=== PATIENT | female | born 1940 | race Caucasian/White ===

== ENCOUNTER 2021-01-07 04:32 | Inpatient (IN) | payer MEDICARE ==
[~2021-01-07] VITALS: Ht 165.1 cm; Wt 51.6 kg
[2021-01-07 05:08] LABS: BASOPHILS 1.3 % (0-2); EOSINOPHILS 1.2 % (0-7); HEMATOCRIT 26.8 % (36.0-48.0); HEMOGLOBIN 9.2 g/dL (12-16); LYMPHOCYTES 11.1 % (15-50); MCH 34.4 pg (26.0-34.0); MCHC 34.4 g/dL (31.0-37.0); MCV 100.2 fL (80.0-100.0); MEAN PLATELET VOLUME 8.3 fL (7.4-10.4); MONOCYTES 12.3 % (2-11); NEUTROPHILS 74.1 % (40-80); PLATELET COUNT 175 10x3/uL (130-400); RBC 2.68 10x6/uL (4.00-5.40); RDW 17.6 % (11.5-14.5); WBC 6.8 10x3/uL (4.8-10.8)
[2021-01-07 05:25] LABS: CALC OSMOLALITY 288 mosm/kg (275-300); CARBON DIOXIDE 22.5 mmol/L (21.0-32.0); CHLORIDE - SERUM 106 mmol/L (98-107); CREATININE - SERUM 2.1 mg/dL (0.6-1.3); GLUCOSE 106 mg/dL (74-106); POTASSIUM - SERUM 4.7 mmol/L (3.5-5.1); SODIUM 139 mmol/L (136-145); UREA NITROGEN 42 mg/dL (7-18); eGFR NON AFRICAN AMERICAN 24 mL/min (90-120)
[2021-01-07 05:31] LABS: ALKALINE PHOSPHATASE 157 U/L (30-120); ALT (SGPT) 23 U/L (10-68); AMYLASE - SERUM 126 U/L (25-115); BILIRUBIN - TOTAL 0.61 mg/dL (0.2-1.3); LIPASE 365 U/L (73-393); PROTEIN - SERUM 6.9 g/dL (6.4-8.2)
[2021-01-07 05:42] LABS: TROPONIN-I < 0.017 ng/mL (0.000-0.060)
--- NOTE | 2021-01-07 07:09 | NUR ---
SPOKE WITH DR KHAN REGARDING PATIENTS BP. BP HAS BEEN ELEVATED SINCE PT ARRIVED TO ED. NO NEW ORDERS PER DR KHAN.
[2021-01-07 07:29] LABS: BACTERIA FEW HPF (NONE SEEN); BILIRUBIN NEGATIVE (NEGATIVE); KETONE NEGATIVE (NEGATIVE); NITRITE NEGATIVE (NEGATIVE); SQUAMOUS EPITHELIAL OCC HPF (0-4); UROBILINOGEN NORMAL mg/dL (< 2); WHITE CELLS - URINE OCC HPF (0-4)
[2021-01-07 08:42] VITALS: BP 174/84
--- NOTE | 2021-01-07 11:10 | NUR ---
PATIENT AAOX4 LYING SEMI FOWLERS, RESP EVEN AND NON LABORED, NO S/S OF DISTRESS, TELEPHONE ORDER FOR PATIENTS MEDICATIONS TOOK FROM DR LOPEZ, MEDICATIONS ADMINISTERED AND DISCUSSED WITH PATIENT, PATIENT STATES SHE LEFT [facility] Wednesday01/03/21 AND WAS ADMITED FOR HEALTHCARE STRAIN EXHAUTION/DEHYDRATION FROM TAKING CARE OF HER , PATIENT STATES SHE HAS HAD N/V/D SINCE WEDNESDAY WELL, PATIENT STATES SHE CAN GET UP WITH MINIMAL ASSIST TO THE BATHROOM AND CAN USE BEDPAN WELL, NO FURTHER NEEDS AT THIS TIME, REAL HOFFMAN
[2021-01-07 11:30] VITALS: BP 174/84; BMI 24.1
[2021-01-07 12:00] VITALS: BP 153/72
--- NOTE | 2021-01-07 14:15 | NUR ---
Pt having labored breathing/states "I can't breathe", placed on oxygen at 2lpm via NC, VS 97.1-20-99%-97-145/84, reported to nurse taking care of pt for further monitoring.
--- NOTE | 2021-01-07 15:50 | NUR ---
PATIENT IS HAVING TROUBLE BREATHING, DR. LOPEZ NOTIFIED FOR NEW ORDERS AND CHEST XRAY ORDERED, DR LOPEZ STATED TO STOP FLUIDS IF SHE IS EATINGA ND DRINKING, FLUIDS STOPPED AT THIS TIME, PATIENT STATES SHE FEELS AWFUL AND CANT BREATH, CURRENT VITALS TEMP-97.8 BP138/87, HR-90, RESP-20, O2-98 2L
[2021-01-07 18:40] VITALS: BP 140/61
--- NOTE | 2021-01-07 18:55 | NUR ---
pt lying in bed, awake alert no distress noted. requesting an iphone charging to [place]. no outcomes analyst available, pt notified. pt denies any other needs or issues. will continue to monitor
[2021-01-08] VITALS: BP 121/70
[2021-01-08 04:00] VITALS: BP 130/67
[2021-01-08 06:22] LABS: EOSINOPHILS 5.3 % (0-7); HEMATOCRIT 25.4 % (36.0-48.0); HEMOGLOBIN 8.3 g/dL (12-16); LYMPHOCYTES 17.3 % (15-50); MCH 33.2 pg (26.0-34.0); MCHC 32.8 g/dL (31.0-37.0); MCV 101.3 fL (80.0-100.0); MEAN PLATELET VOLUME 8.5 fL (7.4-10.4); MONOCYTES 13.4 % (2-11); PLATELET COUNT 168 10x3/uL (130-400); RBC 2.51 10x6/uL (4.00-5.40); RDW 17.7 % (11.5-14.5)
[2021-01-08 06:55] LABS: CALCIUM 8.8 mg/dL (8.5-10.1); CARBON DIOXIDE 24.4 mmol/L (21.0-32.0); MAGNESIUM - SERUM 1.6 mg/dL (1.8-2.4); POTASSIUM - SERUM 4.4 mmol/L (3.5-5.1)
--- NOTE | 2021-01-08 07:00 | NUR ---
PT LYING IN BED. RESP EVEN AND UNLABORED. O2 2 [address]PM [address] NC IN PLACE. EEK. PT STATES THE BATTERIES IN HER HEARING AIDS HAVE WENT OUT, BUT FAMILY IS GOING TO BRING HER MORE. AAO X4. DENIES NEEDS AT THIS TIME. CLIR. BED IN LOWEST POSITION SIDE RAILS X2
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
[2021-01-08 07:49] VITALS: BP 152/78
[2021-01-08 12:02] VITALS: BP 147/72
[2021-01-08] MEDS ORDERED: GABAPENTIN300 MG PO (12:26)
[2021-01-08] MEDS ORDERED: TOPROL XL50 MG PO (12:27)
[2021-01-08] MEDS ORDERED: EFFEXOR XR150 MG PO (12:28)
[2021-01-08] MEDS ORDERED: ASCORBIC ACID500 MG PO (12:29)
[2021-01-08] MEDS ORDERED: OSTEO BI-FLEX1 EAC1 PO (12:30)
[2021-01-08] MEDS ORDERED: VITAMIN E100 UNIT PO (12:31)
[2021-01-08] MEDS ORDERED: MERIBIN5 MG PO (12:32)
[2021-01-08] MEDS ORDERED: ACETAMINOPHEN325 MG PO (12:32)
[2021-01-08 16:03] VITALS: BP 138/68
--- NOTE | 2021-01-08 17:00 | NUR ---
PT STATES SHE DOES NOT WANT TO GO TO [facility] AND WILL ABSOLUTELY NOT GO. ORCHID WORKER NOTIFIED
--- NOTE | 2021-01-08 18:02 | NUR ---
I have reviewed this patient and I concur with the Shift Assessment completed by the Licensed Practical Nurse today this shift.
[2021-01-08 19:34] VITALS: BP 143/77
--- NOTE | 2021-01-08 21:31 | NUR ---
REPORT RECEIVED. PT A&O, UP IN BED. PT EXHIBITING ANXIETY ABOUT D/C'ING. PT WAS TOLD THAT SHE RECEIVED PLACEMENT AT [facility]. PT WAS VERY UPSET BY THIS AND STATED SHE REFUSES TO GO BACK TO [facility] AND STATES THAT SHE WANTS TO LEAVE AT 0900 ON 01/09/21. EXPLAINED TO PT THAT MD DECIDES ON D/C DATE AND TIME. PT STATED THAT SHE WOULD LIKE FOR THIS NURSE TO CONTACT THE MD IN THE MORNING AND TELL HIM TO D/C HER AT 0900. WILL F/U WITH CASE MANAGEMENT IN THE AM. NO S/S OF DISTRESS OBSERVED. RR EVEN AND UNLABORED ON 2L. BED LOCKED AND LOWERED, CL IN REACH. ASSESSMENT COMPLETE. WILL CONT POC.
[2021-01-09 00:28] VITALS: BP 139/69
[2021-01-09 04:10] VITALS: BP 137/67
[2021-01-09 06:17] LABS: BASOPHILS 1.7 % (0-2); EOSINOPHILS 6.6 % (0-7); HEMATOCRIT 23.5 % (36.0-48.0); HEMOGLOBIN 7.8 g/dL (12-16); LYMPHOCYTES 24.4 % (15-50); MCH 33.2 pg (26.0-34.0); MCHC 33.2 g/dL (31.0-37.0); MEAN PLATELET VOLUME 8.4 fL (7.4-10.4); MONOCYTES 14.8 % (2-11); NEUTROPHILS 52.5 % (40-80); PLATELET COUNT 159 10x3/uL (130-400); RBC 2.35 10x6/uL (4.00-5.40); RDW 17.1 % (11.5-14.5)
[2021-01-09 06:18] LABS: WBC 3.5 10x3/uL (4.8-10.8)
[2021-01-09 06:41] LABS: ANION GAP 11.7 mmol/L (8-16); CALCIUM 8.1 mg/dL (8.5-10.1); CARBON DIOXIDE 25.7 mmol/L (21.0-32.0); POTASSIUM - SERUM 4.4 mmol/L (3.5-5.1)
[2021-01-09 08:17] VITALS: BP 146/76
[2021-01-09 11:16] VITALS: BP 150/80
--- NOTE | 2021-01-09 11:37 | NUR ---
REHAB PRESCREEN RECEIVED. PATIENTS OCCUPATIONAL THERAPY EVAL HAS NOT BEEN COMPLETED AT THIS TIME. I WILL SEND A MESSAGE ASKING FOR THIS TO BE MOVED UP ON THE LIST FOR TODAY. WE WILL REVISIT THE CHART AT THAT TIME, AND IF SHE LOOKS TO MEET CRITERIA, THEN SUBMIT TO [facility] FOR AUTH. THANK YOU FOR THE REFERRAL. MIGUELITO LE RN CLINICAL LIAISON, INPATIENT REHAB.
--- NOTE | 2021-01-09 16:17 | NUR ---
THANK YOU FOR THIS REFERRAL. REFERENCE NUMBER OBTAINED FROM [facility]. WAITING FOR CALL FROM REVIEWER AT [facility] TO DISCUSS CLINICALS. -ANIKA HUFFMAN LPN, CLINICAL LIASION
[2021-01-09 19:56] VITALS: BP 156/82
--- NOTE | 2021-01-09 20:00 | NUR ---
REPORT RECEIVED. PT A&O, UP IN BED WATCHING TV. NO S/S OF DISTRESS OBSERVED. RR EVEN & UNLABORED ON 2L. BED LOCKED AND LOWERED, CL IN REACH. ASSESSMENT COMPLETE. WILL CONT POC.
[2021-01-09 23:16] VITALS: BP 137/79
[2021-01-10 04:14] VITALS: BP 159/82
[2021-01-10 05:53] LABS: BASOPHILS 1.3 % (0-2); EOSINOPHILS 6.7 % (0-7); LYMPHOCYTES 22.7 % (15-50); MCH 31.7 pg (26.0-34.0); MEAN PLATELET VOLUME 8.5 fL (7.4-10.4); MONOCYTES 16.6 % (2-11); NEUTROPHILS 52.7 % (40-80); PLATELET COUNT 164 10x3/uL (130-400); RDW 19.8 % (11.5-14.5); WBC 4.1 10x3/uL (4.8-10.8)
[2021-01-10 06:02] LABS: HEMOGLOBIN 10.5 g/dL (12-16); RBC 3.32 10x6/uL (4.00-5.40)
[2021-01-10 06:03] LABS: MCV 96.3 fL (80.0-100.0)
[2021-01-10 06:10] LABS: ANION GAP 10.7 mmol/L (8-16); CALCIUM 8.5 mg/dL (8.5-10.1); CARBON DIOXIDE 25.2 mmol/L (21.0-32.0); CREATININE - SERUM 1.9 mg/dL (0.6-1.3); POTASSIUM - SERUM 3.9 mmol/L (3.5-5.1)
[2021-01-10 07:54] VITALS: BP 146/82
[2021-01-10 10:58] VITALS: BP 158/78
--- NOTE | 2021-01-10 11:59 | NUR ---
would like to leave in enteric isolation until diarrhea resolves. ? Viral potentially transmissible.
[2021-01-10 12:56] VITALS: Ht 165.1 cm; Wt 51.6 kg
[2021-01-10 15:09] VITALS: BP 167/85
--- NOTE | 2021-01-10 15:27 | NUR ---
OT NOTE: PT STATED TREATMENT TO LE FOR RASH, NOTIFIED NURSING. PT COMPLETED FACE HYGIENE WITH SETUP. PT COMPLETED HAIR GROOMING WITH SETUP. PT COMPLETED SUPINE TO SIT WITH SBA. PT COMPLETED SIT TO STANC WITH SBA-CGA. PT COMPLETED ADL MOB WITH SBA-CGA. CL WITHIN REACH AND BED ALARM ON. JOSE LUIS TO COTA
--- NOTE | 2021-01-10 16:45 | NUR ---
ATTEMPTED TO CONTACT THE [facility] X 3 IN REGARDS TO AUTHORIZATION STATUS. DISCONNECTED EACH TIME. WILL CONTINUE TO FOLLOW UP WITH THE [facility] REGARDING AUTHORIZATION.-ANIKA HUFFMAN LPN, CLINICAL LIAISON
[2021-01-10 19:53] VITALS: BP 167/95
--- NOTE | 2021-01-10 22:55 | NUR ---
REPORT RECEIVED. PT A&O, UP IN BED. NO S/S OF DISTRESS OBSERVED. RR EVEN & UNLABORED ON 2L. R AC IV INFUSING NS @ 100CC/HR. DRESSING C/D/I. NO S/S OF INFILTRATION PRESENT. SR 74 ON TELE. PT EXHIBITING ANXIETY. PT HAS BEEN TOLD BY STAFF ON 2 DIFFERENT OCCASIONS THAT SHE IS GOING TO BE D/C'ED. PT IS IN DISTRESS ABOUT D/C'ING BC HER CAREGIVER AND TRANSPORTATION, HOWARD, LIVES OUT OF TOWN AND ARRANGEMENTS MUST BE MADE FOR HIM TO PICK HER UP. PT NEEDS CM TO COORDINATE WITH MD ABOUT WHEN PT WILL BE D/C'ED AND HELP PT ARRANGE TRANSPORTATION HOME. PTS ANXIETY OVER THIS ISSUE HAS BROUGHT HER TO TEARS MOST OF THE DAY. PT NEEDS MD/CM TO COMMUNICATE D/C PLAN WITH HER TO EASE ANXIETY. BED LOCKED AND LWOERED. CL IN REACH. ASSESSMENT COMPLETE. WILL CONT POC.
[2021-01-10 23:41] VITALS: BP 169/93
--- NOTE | 2021-01-11 03:58 | NUR ---
PT RECEIVED QUESTRAN AT 2030 01/10/21. PT HAD DIARRHEA THIS AM AT 0200. ADMINISTERED LOMOTIL.
--- NOTE | 2021-01-11 07:00 | NUR ---
RECEIVED REPORT. ASSUMED CARE OF PATIENT. RESTING WITH EYES CLOSED. NOC SHIFT REPORTS PATIENT TO HAVE INCREASED LEVEL OF ANXIETY THROUGHOUT PRODUCT DEVELOPMENT COORDINATOR, PATIENT WAS NOT ADMINISTERED EFFEXOR MORNING OF 01/10. CALL LIGHT WITHIN REACH. WHITE BOARD UPDATED, BEDSIDE SHIFT REPORT COMPLETE. NO DISTRESS.
[2021-01-11 08:07] VITALS: BP 166/90
--- NOTE | 2021-01-11 12:39 | NUR ---
OOB TO CHAIR AT BEDSIDE. DENIES NEEDS. NO DISTRESS.
[2021-01-11 15:56] VITALS: BP 109/76
--- NOTE | 2021-01-11 16:14 | NUR ---
Resting peacefully with eyes closed. no distress. easily aroused. call light within reach.
[2021-01-11 20:09] VITALS: BP 157/81
--- NOTE | 2021-01-11 22:06 | NUR ---
INITIAL ROUNDS COMPLETED AT 1915 HRS. PT DENIED ANY DISCOMFORT. ASSESSMENT COMPLETED AT 1950 HRS. VSS. SR PER CM HR 82. O2 4LNC. ALERT AND ORIENTED TO PERSON. PLACE AND TIME. PRITCHETT. PALPABLE PERIPHERAL PULSES. IV TO R WRIST WITHNS AT 30CC/HR. IV PATENT. FADING RASH TO BILAT LOWER LEGS. PM MEDS GIVEN. PT HAD C/O GAS CRAMPS. PT ASSISTED TO SIDE OF BED AND MODERATE AMOUNT OF FLATUS WAS PASSED. PT ALSO BURPED X2. PT STATED SHE FELT BETTER. TYLENOL 650MG PO GIVEN FOR C/O CEDENO. PT CURRENTLY RESTING WITH EYES CLOSED. RESP EVEN AND REGULAR. SR UP X1, CALL LIGHT WITHIN REACH.
[2021-01-12 00:01] VITALS: BP 154/82
--- NOTE | 2021-01-12 00:20 | NUR ---
PT UP TO BR. DENIES ANY DISTRESS.
--- NOTE | 2021-01-12 02:13 | NUR ---
PT RESTING WITH EYES CLOSED. RESP EVEN AND REGULAR. SR UP X1,CALL LIGHT WITHIN REACH.
--- NOTE | 2021-01-12 04:33 | NUR ---
ASSSITED PT TO BR. VOIDED MODERATE AMOUNT OF URINE. ASSISTED BACK TO BED. GAIT SLIGHTLY UNSTEADY. SR UP X1, CALL LIGHT WITHIN REACH.
[2021-01-12 04:49] VITALS: BP 145/67
--- NOTE | 2021-01-12 06:05 | NUR ---
VSS THROUGHOUT NIGHT. PT STTAED TYLENOL ALLEVIATED HER CEDENO. NEEDS MET; WILL CONTINUE TO MONITOR.
--- NOTE | 2021-01-12 07:00 | NUR ---
RECEIVED REPORT. ASSUMED CARE OF PATIENT. PATIENT RESTING IN BED WITH EYES OPEN, ATTENTION TOWARD TELEVISION. CALL LIGHT WITHIN REACH. WHITE BOARD UPDATED, BEDSIDE SHIFT REPORT COMPLETE. NO DISTRESS.
--- NOTE | 2021-01-12 07:10 | NUR ---
ASSISTED PATIENT OOB TO RESTROOM AND BACK TO BED.
[2021-01-12 08:00] VITALS: BP 173/89
--- NOTE | 2021-01-12 09:36 | NUR ---
PATIENT DOES NOT WANT ANY BREATHING TREATMENTS AND WILL NOT DO THEM. BELIEVE THAT THEY WILL PARALYZE HER VOCAL CORDS. PATIENT EDUCATED BUT REFUSES.
[2021-01-12 12:00] VITALS: BP 145/78
[2021-01-12 16:00] VITALS: BP 155/83
--- NOTE | 2021-01-12 16:13 | NUR ---
assisted patient oob to bedside commode and back to bed. no distress. call light within reach.
--- NOTE | 2021-01-12 17:25 | NUR ---
CALLED ANSWERING SERVICE TO REQUEST NEURONTIN BE CHANGED FROM 600 DAILY TO 300MG BID PER THE SCHEDULE PATEINT WAS TAKING THEM BEFORE, PATIENT COMPLAINING HER FEET ARE BURNING AND HURTING, OFFERED HER TYLENOL AND SHE STATES IT WILL NOT HELP AND SHE NEEDS HER NEURONTIN INCREASED. AWAITING CALLBACK FROM .
--- NOTE | 2021-01-12 17:44 | NUR ---
SPOKE WITH AND RECIEVED ORDERS TO CHANGE NEURONTIN TO BID, START BID TONIGHT EVEN THOUGH PATEINT HAD 600 THIS AM AND ORDER RECEIVED FOR TYLENOL #3, ONE TAB EVERY 6 HOURS PRN X 3 DOSES ONLY. ORDERS INPUTTED AND WAITED ON PHARMACY TO VERIFY MEDICATION ORDERS.
--- NOTE | 2021-01-12 18:23 | NUR ---
medicated for pain at this time. no distress.
[2021-01-12 21:00] VITALS: BP 153/78
--- NOTE | 2021-01-12 22:13 | NUR ---
INITIAL ROUNDS COMPLETED AT 1915 HRS. BIBLE FOUND FOR PT PER REQUEST. ASSESSMENT COMPELTED AT 1999 HRS. VSS. SR PER CMHR 80. ALERT AND ORIENTED TO PERSON, PLACE AND TIME. PRITCHETT. PALPABLE PERIPHERAL PULSES. O2 3LNC. LUNGS DIMINISHED IN BASES BILAT. BILAT LEGS FROM KNEES DOWN WITH FADING RED RASH. 1+ PEDAL EDEMA. IV TO RFA SL. PM MEDS GIVEN. PT CURRENTLY RESTING WTH EYES CLOSED. RESP EVEN AND REGULAR. SR UP X2, CALL LIGHT WITHIN REACH.
[2021-01-13] VITALS (7 sets, daily range): BP systolic 151–161; BP diastolic 76–80
--- NOTE | 2021-01-13 00:30 | NUR ---
PT RESTING WITH EYES CLOSED. RESP EVEN AND REGULAR. SR UP X2, CALL LIGHT WITHIN REACH.
--- NOTE | 2021-01-13 03:17 | NUR ---
PT RESTING WITH EYES CLOSED. RESP EVEN AND REGULAR. SR UP X2, CALL LIGHT WITHIN REACH.
--- NOTE | 2021-01-13 05:55 | NUR ---
VSS THROUGHOUT SHIFT. PT RESTED WELL DURING SHIFT. NEEDS MET; WILL CONTINUE TO MONITOR.
[2021-01-13 06:47] LABS: BASOPHILS 1.1 % (0-2); EOSINOPHILS 5.3 % (0-7); HEMATOCRIT 28.4 % (36.0-48.0); HEMOGLOBIN 9.6 g/dL (12-16); LYMPHOCYTES 16.8 % (15-50); MCH 32.4 pg (26.0-34.0); MCHC 33.9 g/dL (31.0-37.0); MCV 95.6 fL (80.0-100.0); MEAN PLATELET VOLUME 8.6 fL (7.4-10.4); MONOCYTES 16.9 % (2-11); NEUTROPHILS 59.9 % (40-80); PLATELET COUNT 183 10x3/uL (130-400); RBC 2.97 10x6/uL (4.00-5.40); RDW 18.2 % (11.5-14.5); WBC 5.5 10x3/uL (4.8-10.8)
--- NOTE | 2021-01-13 07:00 | NUR ---
RECEIVED REPORT. ASSUMED CARE OF PATIENT. CALL LIGHT WITHIN REACH. PATIENT RESTING IN BED, HERE FOR AM ROUNDS. WHITE BOARD UPDATED, BEDSIDE SHIFT REPORT COMPLETE. NO DISTRESS.
[2021-01-13 07:06] LABS: ANION GAP 10.5 mmol/L (8-16); CALCIUM 8.7 mg/dL (8.5-10.1); CARBON DIOXIDE 24.6 mmol/L (21.0-32.0); CREATININE - SERUM 1.8 mg/dL (0.6-1.3); POTASSIUM - SERUM 4.1 mmol/L (3.5-5.1)
--- NOTE | 2021-01-13 09:15 | NUR ---
PT OOB WITH PT, AMBULATED 250 FT = ONE LAP AROUND THE ENTIRE UNIT.
--- NOTE | 2021-01-13 12:17 | NUR ---
SHOWER COMPLETE, LINENS CHANGED, AND PATIENT BACK TO BED. TOLERATED SHOWER, LINEN CHANGE WELL.
--- NOTE | 2021-01-13 12:47 | NUR ---
Nutrition Follow-up: PO intake improving. Last recorded BM on 01/12. Last received Zofran on 01/11. Diet: Renal PO intake: 54% avg x 6 meals (01/11-01/12) WT: 113.6# (01/11); 145# (01/07 - stated) Labs noted: K+ 4.1, BUN 23, Cre 1.8, GFR 29 Meds noted: Florajen, Questran, Lomotil, Lasix, vit E, fish oil, Oscal D, Fibercon, electrolyte protocol -Encourage PO intake and honor food preferences within diet restrictions. -Offer nutrition supplements. -Monitor wt. -RD will follow up within 3 days.
--- NOTE | 2021-01-13 13:23 | NUR ---
Spoke with nurse advises diarrhea has subsided. Enteric Isolation has been discontinued.
--- NOTE | 2021-01-13 13:25 | NUR ---
SPOKE WITH SRINIVAS IN INFECTION CONTROL, PATIENT MAY BE TAKEN OUT OF ENTERIC ISOLATION.
--- NOTE | 2021-01-13 16:13 | NUR ---
OT NOTE: (AM) PT COMPLETED SIT TO STAND WITH CGA. PT COMPLETED ADL MOBILITY WITH CGA USING RW. PT COMPLETED UB HYGIENE TASKS WITH SETUP WHILE SEATED. PT COMPLETED HAIR GROOMING WITH SETUP. (PM) PT COMPLETED STANDING BALANCE WITH FUNCTIONAL TASKS WITH CGA-SBA. PT DID WELL. [phone];1-120 JOSE LUIS TO COTA
--- NOTE | 2021-01-13 20:00 | NUR ---
REPORT RECEIVED. PT A&O, UP IN BED WATCHING TV. NO S/S OF DISTRESS OBSERVED. RR EVEN & UNLABORED ON 2L NC. IV TO R FA SL, PATENT, SWAB CAPS IN USE. SR 68 ON TELE. BED LOCKED AND LOWERED, CL IN REACH. ASSESSMENT COMPLETE. WILL CONT POC.
[2021-01-14 04:00] VITALS: BP 159/69
[2021-01-14 05:14] LABS: BASOPHILS 1.2 % (0-2); EOSINOPHILS 5.7 % (0-7); HEMOGLOBIN 9.5 g/dL (12-16); LYMPHOCYTES 19.9 % (15-50); MCH 32.5 pg (26.0-34.0); MCV 95.5 fL (80.0-100.0); MEAN PLATELET VOLUME 8.4 fL (7.4-10.4); MONOCYTES 16.2 % (2-11); PLATELET COUNT 185 10x3/uL (130-400); RBC 2.93 10x6/uL (4.00-5.40); WBC 4.9 10x3/uL (4.8-10.8)
[2021-01-14 05:24] LABS: ANION GAP 10.9 mmol/L (8-16); CALCIUM 8.8 mg/dL (8.5-10.1); CARBON DIOXIDE 23.1 mmol/L (21.0-32.0); CREATININE - SERUM 1.9 mg/dL (0.6-1.3)
[2021-01-14 07:55] VITALS: BP 157/77
--- NOTE | 2021-01-14 11:52 | NUR ---
D/C RIGHT FOREARM IV, TIP INTACT. PAINFUL AND LEAKING. 24 G PLACED IN LEFT AC.
[2021-01-14 12:22] VITALS: BP 151/79
[2021-01-14 15:51] VITALS: BP 108/78
--- NOTE | 2021-01-14 16:45 | NUR ---
OT NOTE: PT COMPLETED SUPINE TO SIT WITH SBA. PT COMPLETED ADL MOBILITY FROM BED TO BATHROOM WITH RW REQUIRED SBA-CGA. PT COMPLETED TOILETING WITH SBA. PT COMPLETED HYGIENE WITH SBA. PT COMPLETED ADL MOB WITH RW TO SINK WITH SBA-CGA. PT COMPLETED UB HYGIENE TASKS WITH SBA AT SINK LEVEL. PT EXHIBITED MOST DIFFICULTY WITH LB DRESSING SECONDARY TO DECREASED TRUNK FLEXION. PT REQUIRED MAX-TOTAL A FOR KAI/DOFF SOCKS. [phone] THANK YOU,MARKUS TIAN
[2021-01-14 21:04] VITALS: BP 117/63
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
[2021-01-15 00:14] VITALS: BP 124/69
[2021-01-15 04:36] VITALS: BP 149/72
--- NOTE | 2021-01-15 07:15 | NUR ---
PT SITTING UP ON SIDE OF BED. RESP EVEN AND UNLABORED. AAO X4. PT STATES SHE IS GOING HOME TODAY. DENIES NEEDS AT THIS TIME. CLIR. BED IN LOWEST POSITION
[2021-01-15] MEDS ORDERED: IPRAT-ALBUT 0.5-3 ML UPD (07:42)
[2021-01-15] MEDS ORDERED: NORVASC10 MG PO (07:42)
[2021-01-15] MEDS ORDERED: QUESTRAN LIG1 PACKET PO (07:42)
[2021-01-15] MEDS ORDERED: Levaquin PO (07:42)
[2021-01-15] MEDS ORDERED: LISINOPRIL10 MG PO (07:43)
[2021-01-15] MEDS ORDERED: IPRATROPIUM BRO30 M1 NASAL (07:44)
[2021-01-15] MEDS ORDERED: FLORAJEN DIGES1 EACH PO (07:44)
[2021-01-15] MEDS ORDERED: MIRALAX17 GM PO (07:44)
[2021-01-15] MEDS ORDERED: SINGULAIR10 MG PO (07:44)
[2021-01-15] MEDS ORDERED: LASIX40 MG PO (07:54)
[2021-01-15] MEDS ORDERED: LEVOFLOXACIN500 MG PO (07:55)
[2021-01-15 08:10] VITALS: BP 148/78
--- NOTE | 2021-01-15 10:20 | NUR ---
PT DC HOME WITH FAMILY MEMBER. DC INSTRUCTIONS GIVEN WRITTEN AND VERBALLY. PT VERBALIZED UNDERSTANDING
--- NOTE | 2021-01-15 17:08 | NUR ---
OT NOTE: PT COMPLETED EOB SITTING WITH SPV-MOD I. PT EDUCATED ON HEP TOLERATED. PT EDUCATED ON SAFETY AT HOME. PT STATED HH WOULD BE FOLLOWING UP WITH CONTINUED THERAPY SERVICES. [id number] JOSE LUIS TO COTA
== END 2021-01-15 10:23 | disposition home or self-care (01) | DRG 682 ==
LOC: D.ER 04:32 → D.M2 06:48
PROVIDERS: Family Medicine; ADMIT Family Medicine; ATTEND Family Medicine
DX: N17.9 Acute kidney failure, unspecified (principal); I50.33 Acute on chronic diastolic (congestive) heart failure; J18.9 Pneumonia, unspecified organism; I13.0 Hypertensive heart and chronic kidney disease with heart failure and stage 1 through stage 4 chronic kidney disease, or unspecified chronic kidney disease; J44.0 Chronic obstructive pulmonary disease with (acute) lower respiratory infection; E86.0 Dehydration; K52.9 Noninfective gastroenteritis and colitis, unspecified; D46.9 Myelodysplastic syndrome, unspecified; N18.30 Chronic kidney disease, stage 3 unspecified; D69.49 Other primary thrombocytopenia; R00.0 Tachycardia, unspecified; D63.1 Anemia in chronic kidney disease; F32.9 Major depressive disorder, single episode, unspecified; J30.9 Allergic rhinitis, unspecified

== ENCOUNTER 2021-01-18 12:36 | Inpatient (IN) | payer MEDICARE ==
[~2021-01-18] VITALS: Ht 165.1 cm; Wt 65.8 kg
[~2021-01-18 12:36] MED LIST: ACETAMINOPHEN325 MG PO; ASCORBIC ACID500 MG PO; EFFEXOR XR150 MG PO; FLORAJEN DIGES1 EACH PO; GABAPENTIN300 MG PO; IPRAT-ALBUT 0.5-3 ML UPD; IPRATROPIUM BRO30 M1 NASAL; LASIX40 MG PO; LEVOFLOXACIN500 MG PO; LISINOPRIL10 MG PO; Levaquin PO; MERIBIN5 MG PO; MIRALAX17 GM PO; NORVASC10 MG PO; OSTEO BI-FLEX1 EAC1 PO; QUESTRAN LIG1 PACKET PO; SINGULAIR10 MG PO; TOPROL XL50 MG PO; VITAMIN E100 UNIT PO
[2021-01-18 13:53] LABS: BASOPHILS 1.5 % (0-2); HEMATOCRIT 28.5 % (36.0-48.0); HEMOGLOBIN 9.5 g/dL (12-16); LYMPHOCYTES 15.6 % (15-50); MCHC 33.1 g/dL (31.0-37.0); MCV 96.4 fL (80.0-100.0); MEAN PLATELET VOLUME 8.9 fL (7.4-10.4); NEUTROPHILS 64.9 % (40-80); PLATELET COUNT 164 10x3/uL (130-400); RBC 2.96 10x6/uL (4.00-5.40); RDW 18.6 % (11.5-14.5); WBC 6.6 10x3/uL (4.8-10.8)
[2021-01-18 14:01] LABS: CALC OSMOLALITY 288 mosm/kg (275-300); CALCIUM 8.1 mg/dL (8.5-10.1); CARBON DIOXIDE 23.5 mmol/L (21.0-32.0); CHLORIDE - SERUM 109 mmol/L (98-107); CREATININE - SERUM 2.2 mg/dL (0.6-1.3); GLUCOSE 134 mg/dL (74-106); POTASSIUM - SERUM 3.3 mmol/L (3.5-5.1); SODIUM 140 mmol/L (136-145); UREA NITROGEN 35 mg/dL (7-18); eGFR NON AFRICAN AMERICAN 23 mL/min (90-120)
[2021-01-18 14:06] LABS: APTT 25.7 SECONDS (22.8-39.4); INR 1.22 (0.85-1.17); PROTIME 14.3 SECONDS (11.6-15.0)
[2021-01-18 14:20] LABS: ALBUMIN 2.9 g/dL (3.4-5.0); ALKALINE PHOSPHATASE 125 U/L (30-120); ALT (SGPT) 30 U/L (10-68); BILIRUBIN - TOTAL 0.39 mg/dL (0.2-1.3); CKMB 5.2 U/L (0.0-3.6); CREATINE KINASE 262 UL (21-215); PRO BNP 2612 pg/mL (0-450); PROTEIN - SERUM 6.4 g/dL (6.4-8.2); TROPONIN-I 0.028 ng/mL (0.000-0.060)
[2021-01-18 15:07] VITALS: BP 163/82
[2021-01-18 15:45] VITALS: BP 157/78
[2021-01-18 17:00] VITALS: BP 154/73
--- NOTE | 2021-01-18 17:46 | NUR ---
BLADDER SCAN RESULTED 508 ML RETENTION OF URINE. VERBAL ORDER FROM [facility] TO START A LOPEZ CATHETER IF RETENTION IS >300ML. [place]DA [place] ADVISED OF RESULT AND ORDER.
--- NOTE | 2021-01-18 18:30 | NUR ---
ALERT AND ORIENTED WITH KENAITZE AND GENERALIZED WEAKNESS. LOPEZ CATH 16F PLACED WITH LYLE URINE NOTED DUE TO 500CC URINE RETENTION NOTED. FALL PRECAUTIONS IN PLACE AND ENCOURAGED TO USE CALL LIGHT FOR ASSIST.
[2021-01-18 20:00] VITALS: BP 160/77
--- NOTE | 2021-01-18 20:30 | NUR ---
RESTING QUEITLY WITH NO COMPLAINTS VOICED. SNORES LOUDLY WHEN SLEEPING. PATIENT STATES SHE HAS HAD SEVERAL SURGERY TO TRY TO CORRECT THE SNORING WITH NO SUCCESS.CL O2 @ 2L PER NC ON. NO DISTESS NOTED.
[2021-01-19 06:26] LABS: BASOPHILS 2.3 % (0-2); EOSINOPHILS 4.2 % (0-7); HEMATOCRIT 27.5 % (36.0-48.0); HEMOGLOBIN 9.3 g/dL (12-16); LYMPHOCYTES 21.4 % (15-50); MCH 32.4 pg (26.0-34.0); MCHC 33.8 g/dL (31.0-37.0); MCV 95.8 fL (80.0-100.0); MEAN PLATELET VOLUME 8.2 fL (7.4-10.4); MONOCYTES 14.6 % (2-11); NEUTROPHILS 57.5 % (40-80); PLATELET COUNT 187 10x3/uL (130-400); RBC 2.87 10x6/uL (4.00-5.40); RDW 19.2 % (11.5-14.5); WBC 5.4 10x3/uL (4.8-10.8)
[2021-01-19 07:07] LABS: ALBUMIN 2.7 g/dL (3.4-5.0); ALKALINE PHOSPHATASE 109 U/L (30-120); ALT (SGPT) 27 U/L (10-68); BILIRUBIN - TOTAL 0.39 mg/dL (0.2-1.3); CALC OSMOLALITY 289 mosm/kg (275-300); CARBON DIOXIDE 22.9 mmol/L (21.0-32.0); CHLORIDE - SERUM 111 mmol/L (98-107); CREATINE KINASE 117 UL (21-215); CREATININE - SERUM 2.1 mg/dL (0.6-1.3); GLUCOSE 101 mg/dL (74-106); POTASSIUM - SERUM 3.6 mmol/L (3.5-5.1); PRO BNP 2890 pg/mL (0-450); PROTEIN - SERUM 6.1 g/dL (6.4-8.2); SODIUM 142 mmol/L (136-145); TROPONIN-I < 0.017 ng/mL (0.000-0.060); UREA NITROGEN 33 mg/dL (7-18); eGFR NON AFRICAN AMERICAN 24 mL/min (90-120)
--- NOTE | 2021-01-19 07:45 | NUR ---
PT SNORING LOUDLY. CL IN REACH. NO NEEDS AT THIS TIME. WCTM
[2021-01-19 08:24] VITALS: BMI 24.1
[2021-01-19 09:52] VITALS: BP 155/78
[2021-01-19 12:04] VITALS: BP 157/76
--- NOTE | 2021-01-19 13:21 | HP ---
PATIENT: JOCELIN LANCASTER MEDICAL RECORD: [id number] ACCOUNT: [id number] LOCATION:D.MS [id number] : 39 ADMISSION DATE: 01/18/21 PCP: AIDE GROSS HISTORY AND PHYSICAL EXAMINATION DATE OF ADMISSION: 01/18/2021 CHIEF COMPLAINT: Frequent falls and weakness. HISTORY OF PRESENT ILLNESS: This is an 80-year-old white female whose PCP is Dr. Aide Gross who is not located in [place]. She was admitted to Dr. Reid from [facility] on 01/07 on unassigned call and discharged home on 01/15/2021 with diagnosis of right lower lobe pneumonia, history of membranoproliferative glomerulonephritis, chronic anemia. Notes reviewed from that admission were that she declined rehab upon discharge and was walking in the halls with minimal assistance. She was discharged on 01/15 on antibiotics and to follow up with her primary care physician next Wednesday (as Wednesday is ). Another report is she fell twice yesterday and apparently has fallen more than that prior to yesterday. Ambulance had to be called to assist her to get up and she was brought back to the hospital today. There is a report that the patient is in hospice question mavis. We need to find out. Chest x-ray done today showed improvement in the lung markings compared to the last chest x-ray done when she was in the hospital last. Lab work was all fairly stable compared to when she was discharged on 01/15. She is admitted. PAST MEDICAL HISTORY: 1. Again membranoproliferative glomerulonephritis. 2. 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 3. Chronic kidney disease stage III. 4. Diastolic CHF. 5. Arthritis. 6. Depression. 7. Peripheral vascular disease. 8. Hypertension. 9. Neuropathy. PAST SURGICAL HISTORY: Bilateral carpal tunnel release, sinus surgery, spine surgery, cataract repair. ALLERGIES: PENICILLIN AND SULFA. SOCIAL HISTORY: She is , but her lives in a care home due to his dementia, so this patient lives alone. HOME MEDICATIONS: Gabapentin 300 mg twice a day, metoprolol XL 50 once a day, Effexor XR 150 once a day, vitamin C daily, Osteo Bi-Flex once a day, vitamin E daily, biotin 5 mg daily, Levaquin 250 mg once a day for 4 more days, DuoNeb updrafts four times a day, Questran Light three times a day, Norvasc 10 mg once a day, lisinopril 10 mg once a day, Singulair 10 mg at bedtime, ipratropium nasal spray once a day. She takes MiraLax p.r.n. constipation and probiotic daily. HABITS: No tobacco, alcohol or drugs. FAMILY HISTORY: Unknown. HISTORY AND PHYSICAL [id number] JOCELIN LANCASTER REVIEW OF SYSTEMS: GENERAL: No major weight changes. HEENT: No particular sinus or allergy problems at this time. RESPIRATORY: Again, just hospitalized for pneumonia. CARDIAC: She has diastolic heart failure with last ejection fraction of 55%. GASTROINTESTINAL: She has heartburn. GENITOURINARY: Has had urinary infections. MUSCULOSKELETAL: Has osteoarthritis. NEUROLOGIC: No known seizures or migraines. PSYCHIATRIC: She has depression. PHYSICAL EXAMINATION: VITAL SIGNS: Temperature 98.6, pulse 114, respirations 16, blood pressure 153/78, O2 sat 96%. GENERAL: The patient was sleeping and snoring loudly when I came into her room. She was easily awakened and states she is not sure why she is here, but says she got weaker. She has stated that she had pneumonia. HEENT: Grossly within normal limits. NECK: Supple. No JVD or bruit. HEART: Regular rate and rhythm. LUNGS: Fairly clear. ABDOMEN: Soft, flat, nontender. EXTREMITIES: A 1+ lower extremity edema. LABORATORY DATA: CBC showed a white count of 6600, hemoglobin 9.5, hematocrit 28.5. Basic metabolic panel: Sodium 140, potassium 3.3, chloride 109, CO2 23.5, BUN 35, creatinine 2.2, glucose 134. Calcium 8.1. Liver functions were okay. INR 1.22. Troponin 0.028, proBNP 2612. DIAGNOSTIC STUDIES: Chest x-ray shows improvement in the lung markings compared to the previous one done over last admission. IMPRESSION: 1. Recent pneumonia. 2. Frequent falls. 3. Weakness. 4. Inability to care for herself. 5. On hospice question mavis question mavis. PLAN: She will be placed in observation and continue her regular medications. We will see if we can find out with case management's help tomorrow about the hospice. I do not believe she needs to go home. I believe she needs to be in rehab based on what we see today. TRANSINT:[id number] Voice Confirmation ID: [id number] DOCUMENT ID: [id number] HISTORY AND PHYSICAL [id number] JOCELIN LANCASTER WILLIAM MD at 1321 CC: [id number] DICTATION DATE: 01/19/21 0108 RUBBER COMPOUNDER MIXER: 01/19/21 0442 ADM IN [place] [id number] [place] [id number]
--- NOTE | 2021-01-19 15:24 | NUR ---
HR 122 HELD ON LICENSE OF [facility] NURSE NOTIFIED
[2021-01-19 17:32] VITALS: BP 141/72
[2021-01-20 08:51] VITALS: BP 126/58
--- NOTE | 2021-01-20 09:00 | NUR ---
ASSESSMENT PER FLOW SHEET. PATIENT IS WITHOUT DISTRESS.MONITOR FOR NEEDS.FALL PREVENTION WITH DEO.CALL LIGHT IN REACH
[2021-01-20 12:37] VITALS: BP 137/76
--- NOTE | 2021-01-20 16:52 | NUR ---
REPORT TO CARY ON MED 2. PATIENT WILL GO TO ROOM 0207
--- NOTE | 2021-01-20 16:53 | NUR ---
MACI TO EMERGENCY CONTACT REN LINDA ANSWER. MESSAGE LEFT TO CALL UNIT
--- NOTE | 2021-01-20 17:07 | NUR ---
CALL FOR TRANSPORT TO MOVE PATIENT TO ROOM 2136.
--- NOTE | 2021-01-20 18:50 | NUR ---
REPORT RECVEIVED PT WAS TRANFERRED FROM MED SURG APPROX 45 MINUTES AGO. PT AWAKE ALERT AND ORIENTED NO DISTRESS NOTED. WILL CONTINUE TO MONITOR
--- NOTE | 2021-01-20 19:30 | NUR ---
pt c/o rasiing heart and anxiety. VSS pt then reported this resolved and declined any interventions at [facility].
[2021-01-20 20:25] VITALS: BP 134/74
--- NOTE | 2021-01-20 21:22 | NUR ---
pt on cell phone requested nurse come to her room, nurse entered room pt put cell phone downa nd asked nurse to call for anxiety meds.
[2021-01-21 00:45] VITALS: BP 133/69
[2021-01-21 04:50] VITALS: BP 136/71
[2021-01-21 05:47] LABS: BASOPHILS 0.7 % (0-2); EOSINOPHILS 2.3 % (0-7); HEMATOCRIT 25.8 % (36.0-48.0); HEMOGLOBIN 8.6 g/dL (12-16); LYMPHOCYTES 9.9 % (15-50); MCH 31.6 pg (26.0-34.0); MCHC 33.5 g/dL (31.0-37.0); MCV 94.5 fL (80.0-100.0); MONOCYTES 15.6 % (2-11); NEUTROPHILS 71.5 % (40-80); PLATELET COUNT 157 10x3/uL (130-400); RBC 2.72 10x6/uL (4.00-5.40); RDW 19.1 % (11.5-14.5); WBC 6.9 10x3/uL (4.8-10.8)
[2021-01-21 05:59] LABS: ANION GAP 12.8 mmol/L (8-16); CALCIUM 7.7 mg/dL (8.5-10.1); CARBON DIOXIDE 22.3 mmol/L (21.0-32.0); CREATININE - SERUM 1.8 mg/dL (0.6-1.3); POTASSIUM - SERUM 4.1 mmol/L (3.5-5.1)
[2021-01-21 12:00] VITALS: BP 124/60
--- NOTE | 2021-01-21 14:25 | MORECARE ---
CASE MANAGEMENT DISCHARGE SUMMARY PATIENT: JOCELIN LANCASTER UNIT: [id number] ADM DATE: 01/18/21 AGE: 80 : 39 SEX: F ROOM/BED: D.2136 AUTHOR: ROSHAN,DOC PHYSICIAN: REFERRING PHYSICIAN: KIA KING MD DATE OF SERVICE: 01/21/21 Case Management Discharge Planning Summary COMMENTS ENTERED DATE: 01/21/21 14:18 CT COMMENT TYPE: Discharge Planning REVIEWER: Beata Olmedo DC PLAN: Inpatient rehab ANTICIPATED DC NEEDS: Rehab PCP: Ever Doty CM met with patient to complete initial dc planning assessment. CM educated patient on the CM role and verbal consent given by patient to complete assessment. CM verified patient's address, phone number, and emergency contact phone numbers. Patient lives at home alone. States she was still driving. Patient currently has Home Health Services with [place]. States she would like to stay at [facility] for rehab. Signed form placed in chart and signed form given to patient. I explained to the patient that her insurance would need to authorize inpatient rehab and they may say she needs to go to a skilled facility. Patient states she does not want to go to a skilled facility. She did agree to take my list and review the facilities on the list. Rehab prescreen placed . CM will continue to follow and will assist as needed with dc plans/needs. DCP REVIEW SUMMARY ANTICIPATED D/C DATE: EXPECTED LOS : CASE STATUS: DCP Initiated INITIAL REVIEW: 01/21/2021 INITIAL REVIEWER: Beata Olmedo FINAL DISCHARGE DISPOSITION: : FINAL REVIEWER: FINAL REVIEW DATE: DCP Focus Questions & Answers DCP Screen QUESTION: ANSWER High Risk Factors: : Readmission within past 30 days DCP Evaluation QUESTION: ANSWER Patient's ability to cope with chronic illness : d. No chronic illness Patient gives permission to discuss discharge plans with: (name, relationship and number) : Lucho Culver - [place] - [phone] Patient's current cognitive status: : *Oriented to person, place, situation, time and present Patient and/or caregiver agree upon recommended discharge plan? : Yes Physical Status: : Independent with ADL's Functional screen assessment: : Unable to manage ADLs without immediate ongoing assistance Alternate discharge plan (if recommended plan not agreed upon by patient and/or caregiver): : SNF Living Arrangements: : Home Alone with Support Baseline cognitive status: : *Oriented to person, place, situation, time and present Patient with capacity for self-care or can be cared for in same environment as prior to hospitalization? : No Results of this evaluation have been discussed with: : Patient Medication Management: : Patient states can afford medications Pharmacy name(s): : [facility] in [place] Does Patient have transportation to get home and to follow-up medical appointments when discharged from the hospital? : Yes Would patient like to participate in any Care Coordination programs (if applicable): : Not applicable Comments: : Patient states she is still driving Does the patient have electricity at home? : Yes Does the patient have running water in their house? : Yes Equipment in use: : Nebulizer Equipment agency name and contact information: : [facility] [place] Mental health screen: : No mental health history Psychosocial status: : Adult with physical limitations Abuse/Neglect: : None Resources / Services in place: : Home health Contact information for resources in use: : [place] DCP Re-evaluation QUESTION: ANSWER Would patient like to participate in any Care Coordination programs (if applicable): : Not applicable PATIENT: JOCELIN LANCASTER ENCOUNTER: [id number] MEDICAL RECORD#: [id number] ADMISSION DATE: 01/18/2021 DISCHARGE DATE: ATTENDING MD: KIA PIERCE : AGE: 80 MARITAL STATUS: M DC PLAN ID: [id number] FACILITY: [facility] PRINTED ON: 01/21/21 14:25 CT All edits/amendments must be made on the electronic document DICTATION DATE: 01/21/21 142 CUSTOM APPLICATOR: RONNIE 01/21/21 142 RPT#: [id number] DC DATE: STATUS: ADM IN [facility] [address] [place] [address] END OF REPORT
--- NOTE | 2021-01-21 15:23 | NUR ---
REHAB PRESCREEN ORDER RECEIVED. PATIENT IS A MANAGED MEDICARE AND HAS NOT HAD HER OCCUPATIONAL THERAPY EVALUATION YET. I WILL CONTACT OT TO SEE IF SHE CAN BE MOVED UP ON THE LIST. I WILL DO A CHART REVIEW AFTER WE HAVE THE OCCUPATIONAL THERAPY REFERAL. WE DID SUBMIT TO HER INSURANCE DURING HER LAST STAY AND INPATIENT REHAB WAS DECLINED. THEY STATED HER NEEDS COULD BE MET AT A LOWER LEVEL OF CARE. WE WILL ATTEMPT AGAIN IF SHE MEETS CRITERIA. THANK YOU FOR THIS REFERRAL. MIGUELITO LE RN CLINICAL LIAISON, INPATIENT REHAB.
[2021-01-21 16:00] VITALS: BP 130/62
[2021-01-21 20:00] VITALS: BP 135/71
[2021-01-22] VITALS: BP 128/65
[2021-01-22 04:00] VITALS: BP 108/69
--- NOTE | 2021-01-22 07:00 | NUR ---
PT LYING IN BED WITH HOB ELEVATED 30 DEGREES. RESP EVEN AND UNLABORED. AAO X4. DENIES NEEDS AT THIS TIME. CLIR. BED IN LOWEST POSITION. SIDE RAILS X2
[2021-01-22 07:23] LABS: BASOPHILS 0.9 % (0-2); EOSINOPHILS 2.7 % (0-7); HEMATOCRIT 24.6 % (36.0-48.0); HEMOGLOBIN 8.3 g/dL (12-16); LYMPHOCYTES 13.4 % (15-50); MCH 31.9 pg (26.0-34.0); MCHC 33.8 g/dL (31.0-37.0); MCV 94.4 fL (80.0-100.0); MEAN PLATELET VOLUME 7.9 fL (7.4-10.4); MONOCYTES 18.4 % (2-11); NEUTROPHILS 64.6 % (40-80); PLATELET COUNT 151 10x3/uL (130-400); RBC 2.61 10x6/uL (4.00-5.40); WBC 7.4 10x3/uL (4.8-10.8)
[2021-01-22 07:39] LABS: ANION GAP 12.2 mmol/L (8-16); CALCIUM 7.7 mg/dL (8.5-10.1); CREATININE - SERUM 1.7 mg/dL (0.6-1.3); POTASSIUM - SERUM 4.2 mmol/L (3.5-5.1)
[2021-01-22 09:49] VITALS: BP 130/57
--- NOTE | 2021-01-22 10:52 | NUR ---
FC DC PER ORDER. 250 ML CLEAR YELLOW URINE DRAINING INTO BAG. 10 mL OF STERILE WATER DRAINED FROM BULB. STATLOCK REMOVED WITH ALCOHOL PADS. PT TOLERATED WITHOUT COMPLAINT
[2021-01-22 12:00] VITALS: BP 125/70
--- NOTE | 2021-01-22 13:23 | NUR ---
I have reviewed this patient and I concur with the Shift Assessment completed by the Licensed Practical Nurse today this shift.
[2021-01-22 15:00] VITALS: BP 126/75
[2021-01-22 20:00] VITALS: BP 142/74
--- NOTE | 2021-01-22 20:38 | NUR ---
EGGCRATE HOWARD PLACED BY DROP COUNT ASSOCIATE FOR PTS COMFORT.
[2021-01-23] VITALS: BP 124/64
[2021-01-23 04:00] VITALS: BP 137/71
[2021-01-23 07:23] LABS: BASOPHILS 0.7 % (0-2); EOSINOPHILS 1.8 % (0-7); HEMATOCRIT 28.1 % (36.0-48.0); HEMOGLOBIN 9.5 g/dL (12-16); LYMPHOCYTES 10.2 % (15-50); MCHC 33.6 g/dL (31.0-37.0); MCV 95.1 fL (80.0-100.0); MEAN PLATELET VOLUME 8.8 fL (7.4-10.4); MONOCYTES 14.7 % (2-11); NEUTROPHILS 72.6 % (40-80); PLATELET COUNT 175 10x3/uL (130-400); RBC 2.96 10x6/uL (4.00-5.40)
[2021-01-23 07:24] LABS: ANION GAP 16.1 mmol/L (8-16); CALCIUM 8.2 mg/dL (8.5-10.1); CARBON DIOXIDE 20.3 mmol/L (21.0-32.0); CREATININE - SERUM 1.7 mg/dL (0.6-1.3); POTASSIUM - SERUM 4.4 mmol/L (3.5-5.1); WBC 9.9 10x3/uL (4.8-10.8)
[2021-01-23 11:05] VITALS: BP 136/69
[2021-01-23 12:50] VITALS: Ht 165.1 cm; Wt 65.8 kg
--- NOTE | 2021-01-23 14:04 | NUR ---
TEDDY WITH [facility] CALLED. THEY HAVE DENIED MRS LANCASTER FOR THE SECOND TIME FOR INPATIENT REHAB. TEDDY STATED IF THE DOCTOR WANTED TO DO A P2P, THEY COULD CALL , OPTION #5 BY 0900 TOMORROW. I HAVE LEFT A MESSAGE FOR GUERDA HENRIQUEZ CASEMANAGER. THANK YOU AGAIN FOR THE REFERRAL. MIGUELITO LE RN CLINICAL LIAISON, INPATIENT [facility].
[2021-01-23 16:04] VITALS: BP 129/50
--- NOTE | 2021-01-23 18:31 | NUR ---
OT NOTE: PT COMPLETED BED MOB WITH MAX-TOTAL A SECONDARY TO TRUNK PAIN. NURSING AWARE. PT COMPLETED FACE HYGIENE WITH SETUP. PT COMPLETED ORAL CARE WITH TOOTHETTE WITH SETUP. PT REQUIRED FREQUENT REST BREAKS. [phone] JOSE LUIS TO COTA
[2021-01-23 19:07] VITALS: BP 118/66
[2021-01-23 23:03] VITALS: BP 122/61
[2021-01-24 03:40] VITALS: BP 123/69
--- NOTE | 2021-01-24 05:03 | NUR ---
I have reviewed this patient and I concur with the Shift Assessment completed by the Licensed Practical Nurse today this shift.
[2021-01-24 06:35] LABS: ANION GAP 15.5 mmol/L (8-16); CARBON DIOXIDE 19.7 mmol/L (21.0-32.0); CREATININE - SERUM 1.8 mg/dL (0.6-1.3); POTASSIUM - SERUM 4.2 mmol/L (3.5-5.1)
[2021-01-24 07:01] LABS: BASOPHILS 1.1 % (0-2); EOSINOPHILS 3.5 % (0-7); HEMATOCRIT 24.2 % (36.0-48.0); HEMOGLOBIN 8.3 g/dL (12-16); LYMPHOCYTES 14.5 % (15-50); MCH 32.2 pg (26.0-34.0); MCHC 34.1 g/dL (31.0-37.0); MCV 94.4 fL (80.0-100.0); MEAN PLATELET VOLUME 8.2 fL (7.4-10.4); MONOCYTES 14.4 % (2-11); NEUTROPHILS 66.5 % (40-80); PLATELET COUNT 174 10x3/uL (130-400); RBC 2.57 10x6/uL (4.00-5.40); RDW 18.8 % (11.5-14.5)
[2021-01-24 07:21] LABS: WBC 6.7 10x3/uL (4.8-10.8)
[2021-01-24 09:00] VITALS: BP 132/63
--- NOTE | 2021-01-24 09:29 | MORECARE ---
CASE MANAGEMENT DISCHARGE SUMMARY PATIENT: JOCELIN LANCASTER UNIT: [id number] ADM DATE: 01/18/21 AGE: 80 : 39 SEX: F ROOM/BED: D.2136 AUTHOR: ROSHAN,DOC PHYSICIAN: REFERRING PHYSICIAN: KIA KING MD DATE OF SERVICE: 01/24/21 Case Management Discharge Planning Summary COMMENTS ENTERED DATE: 01/21/21 14:18 CT COMMENT TYPE: Discharge Planning REVIEWER: Beata Olmedo DC PLAN: Inpatient rehab ANTICIPATED DC NEEDS: Rehab PCP: Ever Doty CM met with patient to complete initial dc planning assessment. CM educated patient on the CM role and verbal consent given by patient to complete assessment. CM verified patient's address, phone number, and emergency contact phone numbers. Patient lives at home alone. States she was still driving. Patient currently has Home Health Services with [place]. States she would like to stay at [facility] for rehab. Signed form placed in chart and signed form given to patient. I explained to the patient that her insurance would need to authorize inpatient rehab and they may say she needs to go to a skilled facility. Patient states she does not want to go to a skilled facility. She did agree to take my list and review the facilities on the list. Rehab prescreen placed . CM will continue to follow and will assist as needed with dc plans/needs. DCP REVIEW SUMMARY ANTICIPATED D/C DATE: EXPECTED LOS : CASE STATUS: DCP Initiated INITIAL REVIEW: 01/21/2021 INITIAL REVIEWER: Beata Olmedo FINAL DISCHARGE DISPOSITION: : FINAL REVIEWER: FINAL REVIEW DATE: DCP Focus Questions & Answers DCP Screen QUESTION: ANSWER High Risk Factors: : Readmission within past 30 days DCP Evaluation QUESTION: ANSWER Patient and/or caregiver agree upon recommended discharge plan? : Yes Patient's current cognitive status: : *Oriented to person, place, situation, time and present Patient's ability to cope with chronic illness : d. No chronic illness Patient gives permission to discuss discharge plans with: (name, relationship and number) : Lucho mullins - [phone] Alternate discharge plan (if recommended plan not agreed upon by patient and/or caregiver): : SNF Functional screen assessment: : Unable to manage ADLs without immediate ongoing assistance Physical Status: : Independent with ADL's Living Arrangements: : Home Alone with Support Results of this evaluation have been discussed with: : Patient Patient with capacity for self-care or can be cared for in same environment as prior to hospitalization? : No Baseline cognitive status: : *Oriented to person, place, situation, time and present Medication Management: : Patient states can afford medications Pharmacy name(s): : [facility] [place] Does Patient have transportation to get home and to follow-up medical appointments when discharged from the hospital? : Yes Comments: : Patient states she is still driving Would patient like to participate in any Care Coordination programs (if applicable): : Not applicable Does the patient have electricity at home? : Yes Does the patient have running water in their house? : Yes Equipment in use: : Nebulizer Equipment agency name and contact information: : [facility] Mental health screen: : No mental health history Psychosocial status: : Adult with physical limitations Abuse/Neglect: : None Resources / Services in place: : Home health Contact information for resources in use: : [place] DCP Re-evaluation QUESTION: ANSWER Would patient like to participate in any Care Coordination programs (if applicable): : Not applicable PATIENT: JOCELIN LANCASTER ENCOUNTER: [id number] MEDICAL RECORD#: [id number] ADMISSION DATE: 01/18/2021 DISCHARGE DATE: ATTENDING MD: KIA PIERCE : AGE: 80 MARITAL STATUS: M DC PLAN ID: [id number] FACILITY: [facility] PRINTED ON: 01/24/21 9:28 CT All edits/amendments must be made on the electronic document DICTATION DATE: 01/24/21927 GAUGE OPERATOR: RONNIE 01/24/21927 RPT#: [id number] DC DATE: STATUS: ADM IN [facility] [address] [place] [address] END OF REPORT
--- NOTE | 2021-01-24 14:54 | MORECARE ---
CASE MANAGEMENT DISCHARGE SUMMARY PATIENT: JOCELIN LANCASTER UNIT: [id number] ADM DATE: 01/18/21 AGE: 80 : 39 SEX: F ROOM/BED: D.2136 AUTHOR: ROSHAN,DOC PHYSICIAN: REFERRING PHYSICIAN: KIA KING MD DATE OF SERVICE: 01/24/21 Case Management Discharge Planning Summary COMMENTS ENTERED DATE: 01/24/21 14:33 CT COMMENT TYPE: Discharge Planning REVIEWER: Verna Eckert WILFRED signed for patient 1st choice to [facility] call placed for possible placement, was informed that there is not availability at this facility. Spoke with patient about alternative facility. Pt agrees to possible placement of [facility] in [place]. Referral sent. ENTERED DATE: 01/21/21 14:18 CT COMMENT TYPE: Discharge Planning REVIEWER: Beata Olmedo DC PLAN: Inpatient rehab ANTICIPATED DC NEEDS: Rehab PCP: Ever Doty CM met with patient to complete initial dc planning assessment. CM educated patient on the CM role and verbal consent given by patient to complete assessment. CM verified patient's address, phone number, and emergency contact phone numbers. Patient lives at home alone. States she was still driving. Patient currently has Home Health Services with [place]. States she would like to stay at [facility] for rehab. Signed form placed in chart and signed form given to patient. I explained to the patient that her insurance would need to authorize inpatient rehab and they may say she needs to go to a skilled facility. Patient states she does not want to go to a skilled facility. She did agree to take my list and review the facilities on the list. Rehab prescreen placed . CM will continue to follow and will assist as needed with dc plans/needs. DCP REVIEW SUMMARY ANTICIPATED D/C DATE: EXPECTED LOS : CASE STATUS: DCP Initiated INITIAL REVIEW: 01/21/2021 INITIAL REVIEWER: Beata Olmedo FINAL DISCHARGE DISPOSITION: : FINAL REVIEWER: FINAL REVIEW DATE: DCP Focus Questions & Answers DCP Screen QUESTION: ANSWER High Risk Factors: : Readmission within past 30 days DCP Evaluation QUESTION: ANSWER Patient and/or caregiver agree upon recommended discharge plan? : Yes Patient's current cognitive status: : *Oriented to person, place, situation, time and present Patient's ability to cope with chronic illness : d. No chronic illness Patient gives permission to discuss discharge plans with: (name, relationship and number) : Lucho mullins - [phone] Alternate discharge plan (if recommended plan not agreed upon by patient and/or caregiver): : SNF Functional screen assessment: : Unable to manage ADLs without immediate ongoing assistance Physical Status: : Independent with ADL's Living Arrangements: : Home Alone with Support Results of this evaluation have been discussed with: : Patient Patient with capacity for self-care or can be cared for in same environment as prior to hospitalization? : No Baseline cognitive status: : *Oriented to person, place, situation, time and present Medication Management: : Patient states can afford medications Pharmacy name(s): : [facility] [place] Does Patient have transportation to get home and to follow-up medical appointments when discharged from the hospital? : Yes Comments: : Patient states she is still driving Would patient like to participate in any Care Coordination programs (if applicable): : Not applicable Does the patient have electricity at home? : Yes Does the patient have running water in their house? : Yes Equipment in use: : Nebulizer Equipment agency name and contact information: : [facility] [place] Mental [facility] screen: : No mental health history Psychosocial status: : Adult with physical limitations Abuse/Neglect: : None Resources / Services in place: : Home health Contact information for resources in use: : [place] DCP Re-evaluation QUESTION: ANSWER Would patient like to participate in any Care Coordination programs (if applicable): : Not applicable PATIENT: JOCELIN LANCASTER ENCOUNTER: [id number] MEDICAL RECORD#: [id number] ADMISSION DATE: 01/18/2021 DISCHARGE DATE: ATTENDING MD: KIA PIERCE : AGE: 80 MARITAL STATUS: M DC PLAN ID: [id number] FACILITY: [facility] PRINTED ON: 01/24/21 14:54 CT All edits/amendments must be made on the electronic document DICTATION DATE: 01/24/211453 BIOFUELS ENGINEERING MANAGER: RONNIE 01/24/21 1454 RPT#: [id number] DC DATE: STATUS: ADM IN [facility] [address] [place] [address] END OF REPORT
[2021-01-24 15:00] VITALS: BP 130/65
--- NOTE | 2021-01-24 17:05 | NUR ---
OT NOTE: PT COMPLETED CHAIR TO BED TSF WITH CGA-MIN A. PT COMPLETED BED MOBILITY WITH MOD A FOR SCOOTING UP TO HEAD OF BED. PT COMPLETED HAIR GROOMING WITH MIN A. PT COMPLETED FACE HYGIENE WITH SETUP. PT COMPLETED UE AROM TOLERATED. [phone] JOSE LUIS TO COTA
[2021-01-24 19:58] VITALS: BP 134/54
[2021-01-25 00:04] VITALS: BP 138/75
--- NOTE | 2021-01-25 01:00 | NUR ---
I have reviewed this patient and I concur with the Shift Assessment completed by the Licensed Practical Nurse today this shift.
[2021-01-25 05:03] LABS: EOSINOPHILS 3.5 % (0-7); HEMATOCRIT 28.7 % (36.0-48.0); HEMOGLOBIN 9.7 g/dL (12-16); LYMPHOCYTES 15.9 % (15-50); MCH 30.7 pg (26.0-34.0); MCHC 33.6 g/dL (31.0-37.0); MEAN PLATELET VOLUME 7.8 fL (7.4-10.4); NEUTROPHILS 63.6 % (40-80); PLATELET COUNT 172 10x3/uL (130-400); RDW 20.6 % (11.5-14.5); WBC 6.1 10x3/uL (4.8-10.8)
[2021-01-25 05:08] LABS: MCV 91.3 fL (80.0-100.0); RBC 3.15 10x6/uL (4.00-5.40)
[2021-01-25 05:21] VITALS: BP 106/81
[2021-01-25 05:25] LABS: ANION GAP 13.7 mmol/L (8-16); CALCIUM 8.3 mg/dL (8.5-10.1); CARBON DIOXIDE 21.7 mmol/L (21.0-32.0); CREATININE - SERUM 1.9 mg/dL (0.6-1.3); POTASSIUM - SERUM 4.4 mmol/L (3.5-5.1)
--- NOTE | 2021-01-25 07:40 | NUR ---
Lying in bed, awake/alert/oriented x2 with intermittent confusion, T/R freq for C/C, currently on back, cont of B/B with BRPs with assist ad yakov, denies pain/other discomfort, call light/phone/water within reach, no s/s of acute distress observed.
[2021-01-25 08:38] VITALS: BP 140/72
[2021-01-25 12:03] VITALS: BP 138/76
[2021-01-25 16:04] VITALS: BP 140/78
[2021-01-25 20:00] VITALS: BP 125/64
--- NOTE | 2021-01-25 22:05 | NUR ---
INITIAL ROUNDS COMPLETED AT 1915 HRS. PT TALKING ON PHONE. NO DISTRESS NOTED. ASSESSMETN COMPETED AT 1954 HRS. VSS. ALERT AND ORIENTED TO PERSON, PLACE AND TIME. PRITCHETT. PALPABLE PERIPHERAL PULSES. IV TORFA SL. LUNGS DIMINISHED IN BASES BILAT. ASSSITED TO BR AFTER ASSESSMETN. PT UNSTEADY ON FEET. VOIDED MODERATE AMOUNT OF URINE. ASSITED BACK TO BED. PM MEDS GIVEN. PT CURRENTLY WATCHING TV. SR UP X2,CALL LIGHT WITHIN REACH AND BED ALARM ON.
--- NOTE | 2021-01-26 00:05 | NUR ---
PT TALKING ON PHONE. NO DISTRESS NOTED. SR UP X2,CALL LIGHT WITHIN REACH AND BED ALARM ON.
--- NOTE | 2021-01-26 02:23 | NUR ---
PT RESTING WITH EYES CLOSED. RESP EVEN AND REGULAR. SR UP X2, CALL LIGHT WITHIN REACH AND BED ALARM ON.
--- NOTE | 2021-01-26 03:50 | NUR ---
PT ASSISTED TO RECLINER. HAS C/O HIP PAIN. ULTRAM 50MG PO GIVEN. CALL LIGHT WITHIN MONICA AND CHAIR ALARM ON.
[2021-01-26 04:00] VITALS: BP 112/70
--- NOTE | 2021-01-26 06:09 | NUR ---
VSS THROUGHOUT NIGHT. PT STATED ULTRAM ALLEVIATED HER HIP PAIN. NEEDS MET; WILL CONTINUE TO MONITOR.
--- NOTE | 2021-01-26 07:11 | NUR ---
RECEIVE SHIFT REPORT. RESTING IN BED WITH EYES CLOSED. RESTLESS. NO S/S OF DISTRESS PRESENT AT THIS TIME. WILL CONTINUE POC AND SAFETY PRECAUTIONS. CALL LIGHT IN REACH. BED ALARM ON.
[2021-01-26 08:13] VITALS: BP 139/69
[2021-01-26 12:00] VITALS: BP 110/56
[2021-01-26 16:00] VITALS: BP 128/65
--- NOTE | 2021-01-26 19:17 | NUR ---
INITIAL ROUNDS COMPLETED. PT DENIES ANY DISCOMOFRT. SR UP X2, CALL LIGHT WITHIN REACH AND BED ALARM ON.
[2021-01-26 20:00] VITALS: BP 143/77
--- NOTE | 2021-01-26 21:34 | NUR ---
ASSESSMENT COMPLETED AT 1925 HRS. PT ALERT, ORIENTED TO PERSON AND PLACE. REORIENTED TO TIME AND SITUATION. LUNGS DIMINISHED IN BASES BILAT. IV TO RFA SL. PALPABLE PERIPHERAL PULSES. ASSISTED TO BR AT 2030 HRS. VOIDED MODERATE AMOUNT OF YELLOW URINE. ASSISTED BACK TO BED. GAIT UNSTEADY. PM MEDS GIVEN. PT CURRENTLY RESTING WITH EYES CLOSED. RESP EVEN AND REGULAR. SR UP X2, CALL LIGHT WITHIN REACH AND BED ALARMON.
[2021-01-27 00:13] VITALS: BP 137/71
--- NOTE | 2021-01-27 00:15 | NUR ---
BEDBATH DONE. PT REFUSED HOSPITAL GOWN. SR UP X2,CALL LIGHT WITHIN REACH AND BED ALARM ON.
--- NOTE | 2021-01-27 02:07 | NUR ---
PT RESTING WITH EYES CLOSED. RESP EVEN AND REGULAR. SR UPX2,CALL LIGHT WITHIN REACH AND BED ALARM ON.
[2021-01-27 04:00] VITALS: BP 131/69
--- NOTE | 2021-01-27 04:14 | NUR ---
ULTRAM 50MG PO GIVEN FOR C/O CHRONIC HIP PAIN. REPOSITIONEDIN BED. SR UP X2,CALL LIGHT WITHIN REACH AND BED ALARM ON.
--- NOTE | 2021-01-27 06:05 | NUR ---
VSS THROUGHOUT NIGHT. PT STATED ULTRAM HELPED HER CHRONIC HIP PAIN. NEEDS MET;WILL CONTINUE TO MONITOR.
--- NOTE | 2021-01-27 07:11 | NUR ---
RECEIVE SHIFT REPORT. RESTING IN BED SNORING LOUDLY. AROUSES TO VOICE AND STIMULI. DENIES ANY NEEDS. WILL CONTINUE POC AND SAFETY PRECAUTIONS. BED ALARM ON.
[2021-01-27 09:00] VITALS: BP 140/72
[2021-01-27 12:50] VITALS: BP 121/84
--- NOTE | 2021-01-27 14:06 | MORECARE ---
CASE MANAGEMENT DISCHARGE SUMMARY PATIENT: JOCELIN LANCASTER UNIT: [id number] ADM DATE: 01/18/21 AGE: 80 : 39 SEX: F ROOM/BED: D.2136 AUTHOR: ROSHAN,DOC PHYSICIAN: REFERRING PHYSICIAN: KIA KING MD DATE OF SERVICE: 01/27/21 Case Management Discharge Planning Summary COMMENTS ENTERED DATE: 01/24/21 14:33 CT COMMENT TYPE: Discharge Planning REVIEWER: Verna Eckert WILFRED signed for patient 1st choice to [facility] call placed for possible placement, was informed that there is not availability at this facility. Spoke with patient about alternative facility. Pt agrees to possible placement of [facility] in [place]. Referral sent. ENTERED DATE: 01/21/21 14:18 CT COMMENT TYPE: Discharge Planning REVIEWER: Beata Olmedo DC PLAN: Inpatient rehab ANTICIPATED DC NEEDS: Rehab PCP: Ever Doty CM met with patient to complete initial dc planning assessment. CM educated patient on the CM role and verbal consent given by patient to complete assessment. CM verified patient's address, phone number, and emergency contact phone numbers. Patient lives at home alone. States she was still driving. Patient currently has Home Health Services with [facility]. States she would like to stay at [facility] for rehab. Signed form placed in chart and signed form given to patient. I explained to the patient that her insurance would need to authorize inpatient rehab and they may say she needs to go to a skilled facility. Patient states she does not want to go to a skilled facility. She did agree to take my list and review the facilities on the list. Rehab prescreen placed . CM will continue to follow and will assist as needed with dc plans/needs. DCP REVIEW SUMMARY ANTICIPATED D/C DATE: EXPECTED LOS : CASE STATUS: DCP Initiated INITIAL REVIEW: 01/21/2021 INITIAL REVIEWER: Beata Olmedo FINAL DISCHARGE DISPOSITION: : FINAL REVIEWER: FINAL REVIEW DATE: DCP Focus Questions & Answers DCP Screen QUESTION: ANSWER High Risk Factors: : Readmission within past 30 days DCP Evaluation QUESTION: ANSWER Patient and/or caregiver agree upon recommended discharge plan? : Yes Patient's current cognitive status: : *Oriented to person, place, situation, time and present Patient gives permission to discuss discharge plans with: (name, relationship and number) : Luhco Culver - [place] - [phone] Patient's ability to cope with chronic illness : d. No chronic illness Alternate discharge plan (if recommended plan not agreed upon by patient and/or caregiver): : SNF Functional screen assessment: : Unable to manage ADLs without immediate ongoing assistance Physical Status: : Independent with ADL's Living Arrangements: : Home Alone with Support Results of this evaluation have been discussed with: : Patient Patient with capacity for self-care or can be cared for in same environment as prior to hospitalization? : No Baseline cognitive status: : *Oriented to person, place, situation, time and present Medication Management: : Patient states can afford medications Pharmacy name(s): : [facility] in [place] Does Patient have transportation to get home and to follow-up medical appointments when discharged from the hospital? : Yes Comments: : Patient states she is still driving Would patient like to participate in any Care Coordination programs (if applicable): : Not applicable Does the patient have electricity at home? : Yes Does the patient have running water in their house? : Yes Equipment in use: : Nebulizer Equipment agency name and contact information: : [facility] screen: : No mental health history Psychosocial status: : Adult with physical limitations Abuse/Neglect: : None Resources / Services in place: : Home health Contact information for resources in use: : [facility] DCP Re-evaluation QUESTION: ANSWER Would patient like to participate in any Care Coordination programs (if applicable): : Not applicable PATIENT: JOCELIN LANCASTER ENCOUNTER: [id number] MEDICAL RECORD#: [id number] ADMISSION DATE: 01/18/2021 DISCHARGE DATE: ATTENDING MD: KIA PIERCE : AGE: 80 MARITAL STATUS: M DC PLAN ID: [id number] FACILITY: [facility] PRINTED ON: 01/27/21 14:06 CT All edits/amendments must be made on the electronic document DICTATION DATE: 01/27/211405 PATIENT COORDINATOR: RONNIE 01/27/21 1406 RPT#: [id number] DC DATE: STATUS: ADM IN [facility] [address] [place] [address] END OF REPORT
--- NOTE | 2021-01-27 14:24 | NUR ---
Nutrition Follow-up: Poor PO intake; did not eat breakfast this AM. Pt reports "my stomach doesn't feel like eating". Denies N/V/C/D. Agreed to try a Boost. Diet: Renal No new wt; last wt: 145# Last BM: 01/26 Labs noted: Na 135, K+ 4.4, BUN 36, Cre 1.9, GFR 27, Ca 8.3 Meds reviewed -Diet liberalized to cardiac diet 2/2 poor PO intake & advanced age; K+ wnl. -Encourage PO intake and honor food preferences within diet restrictions. -Boost sent with lunch today for pt trial. -Monitor wt. -RD will follow up within 3-4 days.
--- NOTE | 2021-01-27 14:32 | MORECARE ---
CASE MANAGEMENT DISCHARGE SUMMARY PATIENT: JOCELIN LANCASTER UNIT: [id number] ADM DATE: 01/18/21 AGE: 80 : 39 SEX: F ROOM/BED: D.2136 AUTHOR: ROSHAN,DOC PHYSICIAN: REFERRING PHYSICIAN: KIA KING MD DATE OF SERVICE: 01/27/21 Case Management Discharge Planning Summary COMMENTS ENTERED DATE: 01/27/21 14:25 CT COMMENT TYPE: Discharge Planning REVIEWER: Beata Zazueta with [facility] called and states they can accept patient today. I called Dr. King and informed him so he can write DC orders. I spoke with the patient and she is in agreement to DC to [facility] today. I attempted to call Lucho Culver and received a busy signal. She will discharge to a Medicare (skilled) bed. ENTERED DATE: 01/24/21 14:33 CT COMMENT TYPE: Discharge Planning REVIEWER: Verna Eckert WILFRED signed for patient 1st choice to [facility] call placed for possible placement, was informed that there is not availability at this facility. Spoke with patient about alternative facility. Pt agrees to possible placement of [facility] in [place]. Referral sent. ENTERED DATE: 01/21/21 14:18 CT COMMENT TYPE: Discharge Planning REVIEWER: Beata Olmedo DC PLAN: Inpatient rehab ANTICIPATED DC NEEDS: Rehab PCP: Ever Doty CM met with patient to complete initial dc planning assessment. CM educated patient on the CM role and verbal consent given by patient to complete assessment. CM verified patient's address, phone number, and emergency contact phone numbers. Patient lives at home alone. States she was still driving. Patient currently has Home Health Services with [facility]. States she would like to stay at [facility] for rehab. Signed form placed in chart and signed form given to patient. I explained to the patient that her insurance would need to authorize inpatient rehab and they may say she needs to go to a skilled facility. Patient states she does not want to go to a skilled facility. She did agree to take my list and review the facilities on the list. Rehab prescreen placed . CM will continue to follow and will assist as needed with dc plans/needs. DCP REVIEW SUMMARY ANTICIPATED D/C DATE: EXPECTED LOS : CASE STATUS: DCP Initiated INITIAL REVIEW: 01/21/2021 INITIAL REVIEWER: Beata Olmedo FINAL DISCHARGE DISPOSITION: : FINAL REVIEWER: FINAL REVIEW DATE: DCP Focus Questions & Answers DCP Screen QUESTION: ANSWER High Risk Factors: : Readmission within past 30 days DCP Evaluation QUESTION: ANSWER Patient and/or caregiver agree upon recommended discharge plan? : Yes Patient's current cognitive status: : *Oriented to person, place, situation, time and present Patient gives permission to discuss discharge plans with: (name, relationship and number) : Lucho Varela [place] - [phone] Patient's ability to cope with chronic illness : d. No chronic illness Alternate discharge plan (if recommended plan not agreed upon by patient and/or caregiver): : SNF Functional screen assessment: : Unable to manage ADLs without immediate ongoing assistance Physical Status: : Independent with ADL's Living Arrangements: : Home Alone with Support Results of this evaluation have been discussed with: : Patient Patient with capacity for self-care or can be cared for in same environment as prior to hospitalization? : No Baseline cognitive status: : *Oriented to person, place, situation, time and present Medication Management: : Patient states can afford medications [facility](s): : [facility] Does Patient have transportation to get home and to follow-up medical appointments when discharged from the hospital? : Yes Comments: : Patient states she is still driving Would patient like to participate in any Care Coordination programs (if applicable): : Not applicable Does the patient have electricity at home? : Yes Does the patient have running water in their house? : Yes Equipment in use: : Nebulizer Equipment agency name and contact information: : [facility] Mental health screen: : No mental health history Psychosocial status: : Adult with physical limitations Abuse/Neglect: : None Resources / Services in place: : Home health Contact information for resources in use: : [facility] DCP Re-evaluation QUESTION: ANSWER Would patient like to participate in any Care Coordination programs (if applicable): : Not applicable PATIENT: JOCELIN LANCASTER ENCOUNTER: [id number] MEDICAL RECORD#: [id number] ADMISSION DATE: 01/18/2021 DISCHARGE DATE: ATTENDING MD: KIA PIERCE : AGE: 80 MARITAL STATUS: M DC PLAN ID: [id number] FACILITY: [facility] PRINTED ON: 01/27/21 14:32 CT All edits/amendments must be made on the electronic document DICTATION DATE: 01/27/211431 COMMUNITY OUTREACH COORDINATOR: RONNIE 01/27/21 143 RPT#: [id number] DC DATE: STATUS: ADM IN [facility] [address] [place] [address] END OF REPORT
--- NOTE | 2021-01-27 15:58 | NUR ---
OT NOTE: PT COMPLETED HAIR GROOMING WITH SETUP. PT REQUIRED MAX A FOR SOCK KAI/DOFF. PT COMPLETED ADL MOB WITH RW AND CGA. PT COMPLETED FACE HYGIENE WITH SETUP. PT COMPLETED ORAL CARE WITH SET UP USING TOOTHETTE. [phone] THANK YOU, MARKUS TIAN
--- NOTE | 2021-01-28 18:50 | MORECARE ---
CASE MANAGEMENT DISCHARGE SUMMARY PATIENT: JOCELIN LANCASTER UNIT: [id number] ADM DATE: 01/18/21 AGE: 80 : 39 SEX: F ROOM/BED: D.2136 AUTHOR: ROSHAN,DOC PHYSICIAN: REFERRING PHYSICIAN: KIA KING MD DATE OF SERVICE: 01/28/21 Case Management Discharge Planning Summary COMMENTS ENTERED DATE: 01/27/21 14:25 CT COMMENT TYPE: Discharge Planning REVIEWER: Beata Zazueta with [facility] called and states they can accept patient today. I called Dr. King and informed him so he can write DC orders. I spoke with the patient and she is in agreement to DC to [facility] today. I attempted to call Lucho Culver and received a busy signal. She will discharge to a Medicare (skilled) bed. ENTERED DATE: 01/24/21 14:33 CT COMMENT TYPE: Discharge Planning REVIEWER: Verna Eckert WILFRED signed for patient 1st choice to [facility] call placed for possible placement, was informed that there is not availability at this facility. Spoke with patient about alternative facility. Pt agrees to possible placement of [facility] in [place]. Referral sent. ENTERED DATE: 01/21/21 14:18 CT COMMENT TYPE: Discharge Planning REVIEWER: Beata Olmedo DC PLAN: Inpatient rehab ANTICIPATED DC NEEDS: Rehab PCP: Ever Doty CM met with patient to complete initial dc planning assessment. CM educated patient on the CM role and verbal consent given by patient to complete assessment. CM verified patient's address, phone number, and emergency contact phone numbers. Patient lives at home alone. States she was still driving. Patient currently has Home Health Services with [facility]. States she would like to stay at [facility] for rehab. Signed form placed in chart and signed form given to patient. I explained to the patient that her insurance would need to authorize inpatient rehab and they may say she needs to go to a skilled facility. Patient states she does not want to go to a skilled facility. She did agree to take my list and review the facilities on the list. Rehab prescreen placed . CM will continue to follow and will assist as needed with dc plans/needs. DCP REVIEW SUMMARY ANTICIPATED D/C DATE: EXPECTED LOS : CASE STATUS: DCP Complete INITIAL REVIEW: 01/21/2021 INITIAL REVIEWER: Beata Olmedo FINAL DISCHARGE DISPOSITION: : FINAL REVIEWER: FINAL REVIEW DATE: DCP Focus Questions & Answers DCP Screen QUESTION: ANSWER High Risk Factors: : Readmission within past 30 days DCP Evaluation QUESTION: ANSWER Patient's ability to cope with chronic illness : d. No chronic illness Patient gives permission to discuss discharge plans with: (name, relationship and number) : Lucho Culver - [place] - [phone] Patient's current cognitive status: : *Oriented to person, place, situation, time and present Patient and/or caregiver agree upon recommended discharge plan? : Yes Physical Status: : Independent with ADL's Functional screen assessment: : Unable to manage ADLs without immediate ongoing assistance Alternate discharge plan (if recommended plan not agreed upon by patient and/or caregiver): : SNF Living Arrangements: : Home Alone with Support Baseline cognitive status: : *Oriented to person, place, situation, time and present Patient with capacity for self-care or can be cared for in same environment as prior to hospitalization? : No Results of this evaluation have been discussed with: : Patient Medication Management: : Patient states can afford medications [facility] : [facility] Does Patient have transportation to get home and to follow-up medical appointments when discharged from the hospital? : Yes Would patient like to participate in any Care Coordination programs (if applicable): : Not applicable Comments: : Patient states she is still driving Does the patient have electricity at home? : Yes Does the patient have running water in their house? : Yes Equipment in use: : Nebulizer Equipment agency name and contact information: : [facility] Mental health screen: : No mental health history Psychosocial status: : Adult with physical limitations Abuse/Neglect: : None Resources / Services in place: : Home health Contact information for resources in use: : [facility] Re-evaluation QUESTION: ANSWER Would patient like to participate in any Care Coordination programs (if applicable): : Not applicable PATIENT: JOCELIN LANCASTER ENCOUNTER: [id number] MEDICAL RECORD#: [id number] ADMISSION DATE: 01/18/2021 DISCHARGE DATE: 01/27/2021 ATTENDING MD: KIA PIERCE : AGE: 80 MARITAL STATUS: M DC PLAN ID: [id number] FACILITY: [facility] PRINTED ON: 01/28/21 18:50 CT All edits/amendments must be made on the electronic document DICTATION DATE: 01/28/211849 REPAIRER AUTO CLOCKS: RONNIE 01/28/211849 RPT#: [id number] DC DATE:01/27/21 STATUS: DIS IN [facility] [address] [place] [address] END OF REPORT
== END 2021-01-27 15:14 | disposition home or self-care (01) | DRG 947 ==
LOC: D.ER 12:36 → D.M2 15:49 → D.MS 15:49 → D.M2 01-20 17:31
PROVIDERS: Family Medicine; ADMIT Family Medicine; ATTEND Family Medicine
DX: R53.1 Weakness (principal); J18.9 Pneumonia, unspecified organism; I50.33 Acute on chronic diastolic (congestive) heart failure; I13.0 Hypertensive heart and chronic kidney disease with heart failure and stage 1 through stage 4 chronic kidney disease, or unspecified chronic kidney disease; N05.5 Unspecified nephritic syndrome with diffuse mesangiocapillary glomerulonephritis; J44.1 Chronic obstructive pulmonary disease with (acute) exacerbation; J44.0 Chronic obstructive pulmonary disease with (acute) lower respiratory infection; D63.1 Anemia in chronic kidney disease; N18.30 Chronic kidney disease, stage 3 unspecified; M19.90 Unspecified osteoarthritis, unspecified site; F32.9 Major depressive disorder, single episode, unspecified; D46.9 Myelodysplastic syndrome, unspecified; I73.9 Peripheral vascular disease, unspecified